=== PATIENT | female | born 1980 | race Caucasian/White ===

== ENCOUNTER 2021-02-11 20:29 | Emergency (ER) | payer SELFPAY ==
[2021-02-11 20:37] VITALS: BP 156/100; PULSE 90; TEMP 98.7; BMI 46.0
[2021-02-11] MEDS ORDERED: ACYCLOVIR 400 MG TABLET PO ONE ×2 (20:47→20:49)
[2021-02-11] MEDS ORDERED: ACYCLOVIR 400 MG TABLET ONE (20:49)
== END 2021-02-11 20:57 | disposition home or self-care (01) ==
LOC: FER 20:29
DX: B02.9 Zoster without complications (principal)
CPT/HCPCS: 99283-25